=== PATIENT | female | born 1945 | race Caucasian/White ===

== ENCOUNTER 2018-06-13 21:12 | Emergency (ER) | payer MEDICARE, OTHER ==
[2018-06-13] MEDS ORDERED: Ciprofloxacin 500 MG Tab PO ONE (21:33)
[2018-06-13] MEDS ORDERED: Phenazopyridine 95 MG Tab PO ONE (21:35)
--- NOTE | 2018-06-13 21:44 | EDM.PDOC ---
ED HPI GENERAL MEDICAL PROBLEM - General Chief Complaint: Genitourinary Problem Stated Complaint: UTI [id number] Time Seen by Provider: 06/13/18 21:20 Source of Information: Reports: Patient History Limitations: Reports: No Limitations - History of Present Illness INITIAL COMMENTS - FREE TEXT/NARRATIVE: C/O 2 day hx of urinary frequency, and burning with urination. Tonight right lower back starting to ache, intermittent fever and chills. Prior to urinary sx had 24 hours of vomiting and diarrhea. No previous UTI c/o Pelvic Pain Score (Numeric/FACES): 9 - Related Data Allergies Allergy/AdvReac Type Severity Reaction Status Date / Time No Known Allergies Allergy Verified 06/13/18 21:20 Home Meds: Home Meds . [No Known Home Meds] 06/13/18 [History] Past Medical History - Past Health History Medical/Surgical History: Denies Medical/Surgical History Social & Family History - Tobacco Use Smoking Status *Q: Never Smoker Second Hand Smoke Exposure: No - Recreational Drug Use Recreational Drug Use: No ED ROS GENERAL - Review of Systems Review Of Systems: ROS reveals no pertinent complaints other than HPI. ED EXAM, RENAL/ - Physical Exam Exam: See Below Exam Limited By: No Limitations General Appearance: Alert, No Apparent Distress Eye Exam: Bilateral Eye: EOMI Ears: Normal External Exam Nose: Normal Inspection Throat/Mouth: Normal Inspection Head: Atraumatic Neck: Normal Inspection, Tender Lateral Respiratory/Chest: Lungs Clear, Normal Breath Sounds Cardiovascular: Normal Peripheral Pulses, Regular Rate, Rhythm GI/Abdominal: Normal Bowel Sounds, Soft Back Exam: No: CVA Tenderness (L), CVA Tenderness (R) Neurological: Alert, Oriented Psychiatric: Normal Affect Course - Vital Signs Last Recorded V/S: Last Vital Signs Temp 99.3 F 06/13/18 21:15 Pulse 80 06/13/18 21:15 Resp 20 06/13/18 21:15 BP 167/75 H 06/13/18 21:15 Pulse Ox 99 06/13/18 21:15 - Orders/Labs/Meds Orders: Active Orders 24 hr Category Date Time Status CULTURE URINE [RM] Urgent Lab 06/13/18 21:20 Received Labs: Laboratory Tests 06/13/18 Range/Units 21:20 Urine Color Yellow (YELLOW) Urine Appearance Turbid (CLEAR) Urine pH 6.0 (5.0-9.0) Ur Specific [place] 1.020 (1.005-1.030) Urine Protein >=300 H (NEGATIVE) Urine Glucose (UA) Negative (NEGATIVE) Urine Ketones Negative (NEGATIVE) Urine Occult Blood Large H (NEGATIVE) Urine Nitrite Negative (NEGATIVE) Urine Bilirubin Negative (NEGATIVE) Urine Urobilinogen 0.2 (0.2-1.0) mg/dL Ur Leukocyte Esterase Large H (NEGATIVE) Urine RBC >100 H /HPF Urine WBC Packed H (0-5/HPF) /HPF Ur Epithelial Cells Few /HPF Amorphous Sediment Few (0/HPF) /HPF Urine Bacteria Moderate H (0-FEW/HPF) /HPF Urine Mucus Not seen /LPF Meds: Medications Discontinued Medications Generic Name Dose Route Start Last Admin Trade Name Jaskaranq PRN Reason Stop Dose Admin Ciprofloxacin 500 mg 06/13/18 21:33 06/13/18 21:40 Ciprofloxacin Hcl PO 06/13/18 21:34 500 mg ONETIME ONE Administration Phenazopyridine HCl 190 mg 06/13/18 21:35 06/13/18 21:40 Urinary Pain Relief PO 06/13/18 21:36 190 mg ONETIME ONE Administration Departure - Departure Time of Disposition: 21:39 Disposition: Home, Self-Care 01 Condition: Good Clinical Impression: UTI, Urinary tract infectious disease - Discharge Information *PRESCRIPTION DRUG MONITORING PROGRAM REVIEWED*: Not Applicable *COPY OF PRESCRIPTION DRUG MONITORING REPORT IN PATIENT RUFINA: Not Applicable Instructions: Urinary Tract Infection, Adult Forms: ED Department Discharge Additional Instructions: pyridium 200mg one every 8 hours as needed for urinary symptoms cipro 500mg one twice daily for 5 days recheck if worsening flank pain, fever/ chills, vomiting tylenol 650mg every 4 hours as needed for fever/ discomfort increase fluid intake - My Orders Last 24 Hours: My Active Orders 06/13/18 21:20 CULTURE URINE [RM] Urgent - Assessment/Plan Last 24 Hours: My Active Orders 06/13/18 21:20 CULTURE URINE [RM] Urgent
== END 2018-06-13 21:45 | disposition home or self-care (01) ==
LOC: DL.ED 21:12
DX: N39.0 Urinary tract infection, site not specified (principal)
CPT/HCPCS: 81001; 87086; 99283; A9270; 87088; 87186